=== PATIENT | female | born 1980 | race Caucasian/White ===

== ENCOUNTER 2024-06-08 10:15 | Emergency (ER) | payer OTHER ==
[~2024-06-08] VITALS: Ht 162.6 cm; Wt 51.6 kg
[2024-06-08 10:17] VITALS: BP 176/148; PULSE 137; RESP 16; TEMP 98; O2SAT 97
== END 2024-06-08 14:23 | disposition left against medical advice (07) ==
LOC: ER 10:15
DX: M25.551 Pain in right hip (principal); Z53.21 Procedure and treatment not carried out due to patient leaving prior to being seen by health care provider

== ENCOUNTER 2024-08-30 18:35 | Emergency (ER) | payer OTHER ==
[~2024-08-30] VITALS: Ht 162.6 cm; Wt 48.0 kg
[2024-08-30 18:40] VITALS: TEMP 96.8
[2024-08-30 19:18] LABS: BASOPHILS # (AUTO) 0.1 X10'3 (0-0.2); BASOPHILS % (AUTO) 0.7 % (0-1); EOSINOPHILS % (AUTO) 0.5 % (0-6); HEMATOCRIT 44.3 % (35.0-45.0); HEMOGLOBIN 14.9 g/dl (12.0-16.0); LYMPHOCYTES # (AUTO) 4.4 X10'3 (1.1-4.8); LYMPHOCYTES % (AUTO) 53.9 % (21-51); MEAN CORPUSCULAR HEMOGLOBIN 28.5 PG (27.0-31.0); MEAN CORPUSCULAR HGB CONC 33.7 g/dL (33.0-36.5); MEAN CORPUSCULAR VOLUME 84.7 FL (78-98); MEAN PLATELET VOLUME 7.6 FL (7.4-10.4); MONOCYTES # (AUTO) 0.5 X10'3 (0-0.9); MONOCYTES % (AUTO) 6.5 % (2-12); NEUTROPHILS # (AUTO) 3.1 X10'3 (1.8-7.7); NEUTROPHILS % (AUTO) 38.4 % (42-75); PLATELET COUNT 250 X10'3 (140-440); RED BLOOD COUNT 5.23 X10'6 (4.20-5.60); WHITE BLOOD COUNT 8.1 X10'3 (4.5-11.0)
--- NOTE | 2024-08-30 19:41 | RADIOLOGY REPORT ---
CHEST RADIOGRAPH Indication: SOB Technique: Frontal and lateral view of the chest was obtained Comparison: None FINDINGS: Lines and Tubes: None Lungs: Clear Pleura: No effusion. No pneumothorax. Cardiomediastinal contours: Unremarkable Bones: Unremarkable IMPRESSION: No abnormality.
[2024-08-30 20:08] LABS: ALANINE AMINOTRANSFERASE 22 U/L (12-78); ALBUMIN 4.1 G/DL (3.4-5.0); ALBUMIN/GLOBULIN RATIO 1.1 (1.1-1.5); ALKALINE PHOSPHATASE 94 IU/L (46-116); ANION GAP 7 (8-16); BILIRUBIN,TOTAL 0.3 MG/DL (0.1-1.0); BLOOD UREA NITROGEN 11 MG/DL (7-18); BUN/CREATININE RATIO 13.1 (10.0-20.0); CALCIUM 9.1 MG/DL (8.5-10.1); CHLORIDE 100 MMOL/L (99-107); CREATININE 0.84 MG/DL (0.40-0.90); GLUCOSE 111 MG/DL (70-104); SODIUM 133 MMOL/L (135-145); TOTAL CARBON DIOXIDE 26.4 MMOL/L (24-32); TOTAL PROTEIN 7.8 G/DL (6.4-8.2); eCRCL 65 ML/MIN; eGFR 74 ML/MIN
[2024-08-30 20:13] LABS: PLATELET ESTIMATE NORMAL; TOTAL CELLS COUNTED 100
[2024-08-30 20:16] LABS: PRO BRAIN NATRIURETIC PEPTIDE 33 PG/ML (0-125)
[2024-08-30 20:18] LABS: ASPARTATE AMINO TRANSFERASE 24 U/L (10-37); POTASSIUM 5.3 MMOL/L (3.5-5.1)
--- NOTE | 2024-08-30 22:03 | Physician Documentation ---
History of Present Illness ~ Chief Complaint: Shortness of Breath Stated Complaint: SOB Time Seen by MD: 22:02 HPI Patient presents to the emergency room with intermittent symptoms over the past several years. Having intermittent symptoms of hands being cold hip swelling heart racing and shortness of breath. She states it seems to happened prior to her period. She is established with a primary care. She was here in February speaking of her hip pain and swelling however left before being seen. She reports a CT scan has been performed on her reported hip swelling which was negative. She also endorses episodes of abdominal swelling. She has had labs performed by her primary care but that has yet to review the results. Today she was getting ready to eat dinner and her feeling of shortness of breath and heart racing lasted longer than her usual therefore she felt she needed to be evaluated. No current symptoms. Medication Reconciliation Allergies: Coded Allergies: No Known Allergies (Unverified , 08/30/24) Review of Systems ROS All review of systems negative except as per HPI Physical Exam Vital Signs: Temperature: 96.8, Source: Temporal, Heart Rate: 112, Respiratory Rate: 24, BP: 122/46, Pulse Oximetry: 92, Weight: 48.000 Physical Exam General: Patient is awake, alert, oriented x4 in no acute distress and well appearing.~ Head: Normocephalic and atraumatic. Eyes: Conjunctival normal. EOMI. PERRL. ENT: Mucous membranes moist. Neck: Supple, trachea is midline. Chest: Clear to auscultation bilaterally without rales, rhonchi, or wheezes. There is no accessory muscle use or retractions. Cardiac: Tachycardic and regular without murmurs, gallops, or rubs. Abd: Soft, I do not appreciate any distention, nontender, with normoactive bowel sounds. No guarding, rebound, or rigidity. Extremities: I do not appreciate any hip asymmetry/swelling Progress Results/Orders Results/Orders Orders - BETO BARTON MD Monitor (08/30/24 19:10) Saline Lock (08/30/24 19:10) Oxygen (08/30/24 19:10) Chest,Two Views (08/30/24 19:10) Electrocardiogram (08/30/24 19:10) Hs Troponin I W Calculations (08/30/24 22:10) Completed Orders - BETO BARTON MD Cbc/Diff (08/30/24 19:10) Chest,Two Views (08/30/24 19:10) Hs Troponin I W Calculations (08/30/24 19:10) Hs Troponin I W Calculations (08/30/24 21:10) Man Diff (08/30/24 18:53) Vital Signs 08/30/24 08/30/24 08/30/24 18:40 22:05 23:01 Temp 96.8 Pulse 112 92 Resp 24 16 B/P (MAP) 122/46 108/52 (70) Pulse Ox 92 100 Laboratory Tests Test 08/30/24 18:53 08/30/24 19:47 White Blood Count 8.1 Red Blood Count 5.23 Hemoglobin 14.9 Hematocrit 44.3 Mean Corpuscular Volume 84.7 Mean Corpuscular Hemoglobin 28.5 Mean Corpuscular Hemoglobin Concent 33.7 Red Cell Distribution Width 14.0 Platelet Count 250 Mean Platelet Volume 7.6 Neutrophils (%) (Auto) 38.4 L Lymphocytes (%) (Auto) 53.9 H Monocytes (%) (Auto) 6.5 Eosinophils (%) (Auto) 0.5 Basophils (%) (Auto) 0.7 Neutrophils # (Auto) 3.1 Lymphocytes # (Auto) 4.4 Monocytes # (Auto) 0.5 Eosinophils # (Auto) 0.0 Basophils # (Auto) 0.1 CBC Comment Differential Total Cells Counted 100 Neutrophils % (Manual) 37.0 L Lymphocytes % (Manual) 52.0 H Monocytes % (Manual) 8.0 Eosinophils % (Manual) 2.0 Reactive Lymphocytes 1.0 H Platelet Estimate Normal Red Blood Cell Morphology Normal Basophilic Stippling Troponin I High Sensitivity < 4 L < 4 L Troponin I High Sens Percent Delta Troponin I Hi Sens Absolute Change Chemistry Comments Sodium Level 133 L Potassium Level 5.3 H Chloride Level 100 Carbon Dioxide Level 26.4 Anion Gap 7 L Blood Urea Nitrogen 11 Creatinine 0.84 Estimated GFR/1.73 m2 74 BUN/Creatinine Ratio 13.1 Glucose Level 111 H Calcium Level 9.1 Total Bilirubin 0.3 Aspartate Amino Transf (AST/SGOT) 24 Alanine Aminotransferase (ALT/SGPT) 22 Alkaline Phosphatase 94 Pro-B-Type Natriuretic Peptide 33 Total Protein 7.8 Albumin 4.1 Globulin 3.7 Albumin/Globulin Ratio 1.1 Thyroid Stimulating Hormone (TSH) 3.45 EKG/XRAY/CT/US/VASC/MRI EKG : Additional Comment EKG interpreted by myself shows time of 1844, rate 106, sinus tachycardia, normal axis, no ST changes Chest X-Ray : Additional Comments Exam: CHEST,TWO VIEWS CHEST RADIOGRAPH Indication: SOB Technique: Frontal and lateral view of the chest was obtained Comparison: None FINDINGS: Lines and Tubes: None Lungs: Clear Pleura: No effusion. No pneumothorax. Cardiomediastinal contours: Unremarkable Bones: Unremarkable IMPRESSION: No abnormality. Medical Decision Making Findings Patient presented to the emergency room with multiple medical complaints. Differentials include but are not limited to panic attack, cardiac arrhythmia, thyroid storm caught a autoimmune, hormonal dysregulation therefore emergent labs ordered which were reassuring. Patient was noted to have tachycardia during her stay in the emergency room but upon final re-evaluation her heart rate was normal. Consideration of pulmonary embolism however patient is asymptomatic at this time. She was established with a primary care and she is to continue working with her doctor. Departure Disposition: HOME / SELF CARE / HOMELESS Impression: Primary Impression: Difficulty breathing Condition: Improved Discharge Instructions: Shortness of Breath, Adult, [id number] Additional Instructions: Continue to follow up with your doctor. Consider Holter monitor Referrals: NO PRIMARY CARE PROVIDER (PCP) Education Educated: Patient Educated regarding: need for follow up Signature Scribe Signature: No scribe Attestation: The note accurately reflects work and decisions made by me.Beto Barton MD 08/30/24 23:32 BETO BARTON MD August 30, 2024 22:03
[2024-08-30 23:15] LABS: THYROID STIMULATING HORMONE 3.45 ulU/ml (0.34-4.50)
[2024-08-30 23:40] VITALS: BP 110/53; PULSE 84; RESP 18; O2SAT 100
--- NOTE | 2024-08-31 05:17 | ELECTROCARDIOGRAPH REPORT ---
[facility] Test Date: 2024-08-30 Test Time: 18:44:11 Pat Name: SHABBIR REDDING Department: EMERGENCY ROOM [id number] Room: Gender: F Summer Babysitter: MARY ALICE : 1980 Requested By: ANDREINA MANCINI Order Number: [id number] Reading MD: Dr. Bob Larios Measurements Intervals [place] Rate: 106 P: 87 DE: 160 QRS: 87 QRSD: 63 T: 67 QT: 297 QTc: 395 Interpretive Statements Sinus tachycardia Biatrial enlargement Probable anteroseptal infarct, old Electronically Signed On 09-01-2024 6:41:[address] Bob Larios Please click the below link to view image of tracing.
== END 2024-08-30 23:36 | disposition home or self-care (01) ==
LOC: ER 18:36
DX: R06.02 Shortness of breath (principal)
CPT/HCPCS: 36415; 71046; 80053; 83880; 84443; 84484; 85007; 85025; 93005; 99285